=== PATIENT | male | born 1955 | race African-American/Black ===

== ENCOUNTER 2022-02-01 12:53 | Outpatient (CLI) | payer MEDICARE, SELFPAY ==
--- NOTE | ~2022-02-01 | CT_ITS ---
EXAMINATION: CT LE RT wo con DATE: 02/01/2022 13:36 INDICATION: Right hip osteoarthritis for preoperative evaluation. TECHNIQUE: High resolution computed tomography (CT) of the right lower extremity from the hip through the ankle was performed without intravenous contrast. Additional sagittal and coronal reconstruction s were performed. Automated exposure control and iterative reconstruction technique were employed. e dose-length product was 1883.85 mGy-cm. COMPARISON: Right knee radiographs dated 10/11/2019 FINDINGS: Alignment is normal. No fracture. Tricompartmental osteoarthritis at the right knee, severe with dege nerative subchondral changes consistent with overlying high-grade chondral malacia at the medial and patellofemoral compartments. Small knee joint effusion. Minimal osteoarthritis at the right hip and a nkle without joint effusions. Elongated eccentric sclerotic lesion along the medial side of the mid t o distal right femoral diaphysis with no endosteal scalloping or other aggressive features most likel y either a bone island or remnant of a chronic involuted nonossifying fibroma. Soft tissues are unrem arkable. IMPRESSION: 1. Right knee severe tricompartmental osteoarthritis with medial and patellofemoral predominance. Reviewed, dictated and finalized at location B. IMPRESSION: 1. Right knee severe tricompartmental osteoarthritis with medial and patellofem oral predominance.
[2022-02-01 13:46] LABS: Hematocrit 43.4 % (42.0-52.0); Hemoglobin 14.3 g/dL (14.0-18.0)
[2022-02-01 14:03] LABS: Albumin Level 4.2 g/dL (3.5-5.1); Estimated Glomerular Filt Rate > 60; Glucose 115 mg/dL (65-110)
[2022-02-01 14:13] LABS: Urine Cotinine NEGATIVE
[2022-02-01 14:44] LABS: Hemoglobin A1C 6.2 % (<5.7)
== END 2022-02-01 12:54 | disposition home or self-care (01) ==
PROVIDERS: Visit Provider Orthopaedic Surgery
DX: Z01.818 Encounter for other preprocedural examination (principal); M17.11 Unilateral primary osteoarthritis, right knee
CPT/HCPCS: 73700; 80307; 82040; 82565; 82947; 83036; 85014; 85018

== ENCOUNTER 2022-02-07 15:20 | Outpatient (CLI) | payer MEDICARE, SELFPAY ==
--- NOTE | 2022-02-07 15:31 | ECG_ITS ---
Measurements Intervals [place] Rate: 55 P: 52 NM: 180 QRS: -17 QRSD: 138 T: 8 QT: 473 QTc: 454 Interpretive Statements SINUS BRADYCARDIA RIGHT BUNDLE BRANCH BLOCK BASELINE ARTIFACT- I, II, AVR, AVL, V1 ABNORMAL ECG NO PREVIOUS ECG AVAILABLE FOR COMPARISON Electronically Signed On 02-07-2022 16:46:22 TIRE FIXER by Eric Pedroza D.O.
== END 2022-02-07 15:21 | disposition home or self-care (01) ==
LOC: ANHCARD 15:23
PROVIDERS: Visit Provider Orthopaedic Surgery
DX: M17.11 Unilateral primary osteoarthritis, right knee (principal); R00.1 Bradycardia, unspecified; I45.10 Unspecified right bundle-branch block
CPT/HCPCS: 93005

== ENCOUNTER 2022-03-27 09:57 | Outpatient (CLI) | payer MEDICARE, SELFPAY ==
[2022-03-27 11:13] LABS: Basophils Percent Auto 0.2 % (0.2-1.2); Eosinophils Absolute Auto 0.4 K/mm3 (0-0.3); Eosinophils Percent Auto 3.9 % (0-4.4); Hematocrit 44.6 % (42.0-52.0); Hemoglobin 14.6 g/dL (14.0-18.0); Immature Granulocyte Absolute 0.03 K/mm3 (0.00-0.031); Immature Granulocyte Percent A 0.3 % (0-0.5); Lymphocytes Absolute Auto 2.01 K/mm3 (0.9-3.2); Lymphocytes Percent Auto 20.6 % (18.3-44.2); Mean Corpuscular HGB Conc 32.7 g/dl (32-36); Mean Corpuscular Hemoglobin 30.5 pg (26-34); Mean Corpuscular Volume 93.1 fl (80-100); Monocytes Absolute Auto 0.7 K/mm3 (0.1-0.6); Neutrophils Absolute Auto 6.7 K/mm3 (1.3-6.7); Platelet Count Result 259 k/mm3 (150-375); Red Blood Count 4.79 M/mm3 (4.6-6.20); Red Cell Distribution Width 13.2 % (11.5-14.5); White Blood Count 9.8 K/mm3 (4.5-10.0)
[2022-03-27 11:25] LABS: Estimated Glomerular Filt Rate > 60; Glucose 135 mg/dL (65-110)
[2022-03-27 11:32] LABS: Urine Cotinine NEGATIVE
== END 2022-03-27 09:58 | disposition home or self-care (01) ==
PROVIDERS: Visit Provider Orthopaedic Surgery
DX: Z01.818 Encounter for other preprocedural examination (principal); M17.11 Unilateral primary osteoarthritis, right knee
CPT/HCPCS: 80307; 82040; 82565; 82947; 85025; 87081

== ENCOUNTER 2022-04-16 00:22 | Day surgery (SDC) | payer MEDICARE, SELFPAY ==
[2022-03-27 10:06] VITALS: BMI 35.2
--- NOTE | 2022-03-27 10:38 | PC.NURSE ---
Report to the Outpatient Waiting Room, entrance under the green pavilion located off [facility], at time _1130 on date ___04/16/22____. Planned Procedure Time: _1330 . Time changes happen often and if your time is changed the preop area will call you the afternoon before. - You and your visitor will be asked to self-screen and do not enter if you have any COVID symptoms. - Only one visitor is requested with a max of two and NO children visitors are allowed at this time. - The patient visitor may be requested to leave or wait in car when not with patient due to distancing restrictions. - A mask is optional within the hospital. Patients may have clear liquids (water, carbonated beverages, clear teas, apple juice) until 3 hours prior to surgery with a maximum of 20 ounces. - No food from midnight until time of surgery - Infants may have breast milk until 4 hours before surgery, infant formula 6 hours prior to surgery. - Children will be allowed to drink immediately following surgery. If applicable, please bring a bottle or sippy cup to assist with drinking. Juice, water, soda, and popsicles are readily available. For infants on formula, please bring formula the day of surgery. Pacifiers are allowed. Take the following medications with a SIP of water the morning of surgery: NONE Medications to discontinue per physician ALL VITAMINS AND SUPPLEMENTS 3 DAYS PRE OP PER ANESTHESIA LAST DOSE04/12/22 Date to take last dose Please no make-up, nail palauan, hairspray, perfume, deodorant, or body powder the day of surgery. No jewelry (including any body piercings) or valuables the day of surgery, leave them at home. Please take a shower or bath the night before, or the morning of, surgery with an antibacterial soap. Wear comfortable, loose fitting clothing. Children are encouraged to wear pajamas. - Jewelry must be removed prior to entering the operating room. Rings and piercings that are not removed may be cut off. - The hospital will not accept responsibility for valuables. - Please leave all valuables, including medications, at home the day of surgery. TOTAL JOINT CLASS 04/03/22 AT 10 AM If you are going home after surgery, a licensed tow car driver must drive you home. - NO public transportation without another adult if you receive anesthesia. - We recommend that an adult stay with you for 24 hours following discharge. - We also recommend that you do not drive, make important decision, drink alcoholic beverages, or take any drugs that were not prescribed by your health care provider for at least 24 hours after your discharge time. Follow any additional instructions given to you from your surgeon. If you or anyone in your household have experienced Covid symptoms in the past week, please notify your surgeon or the nurse liaison at the phone number below for possible testing. VERBAL AND WRITTEN instructions given to __PATIENT and asked if any additional questions and then verbalized understanding. Patient advised to call surgeon office or pre surgery nurse liaison [phone] if any additional questions.
[2022-03-27 10:52] VITALS: BP 148/83; PULSE 58; RESP 18; TEMP 37.2; O2SAT 98
[2022-04-16] VITALS (14 sets, daily range): BP systolic 123–154; BP diastolic 67–102; PULSE 53–69; RESP 12–20; TEMP 36.1–36.9; O2SAT 92–100; BMI 34.1
--- NOTE | ~2022-04-16 | XR_ITS ---
EXAMINATION: XR knee RT 2V DATE: 04/16/2022 15:37 INDICATION: Right knee arthroplasty. Postop. TECHNIQUE: 2 views of right knee were obtained. COMPARISON: Right knee radiographs 10/11/2019 FINDINGS: There is a total right knee arthroplasty with patellar resurfacing in near-anatomic alignme nt. No fracture. There is gas in the knee joint and soft tissues, consistent with recent surgery. IMPRESSION: 1. Total right knee arthroplasty in near-anatomic alignment. Reviewed, dictated and finalized at location A. FILL GAS PLANT FIELD TECHNICIAN
--- NOTE | 2022-04-16 09:36 | WPDHPUPDATE1 ---
History and Physical Update Update Date/Time: 04/16/22 09:36 History and Physical has been reviewed, including an updated exam of the patient. There are NO changes in the patient's condition. Risks, benefits, and alternatives have been discussed and questions answered. Patient agrees to proceed with procedure.
--- NOTE | 2022-04-16 10:08 | P.PNAN_ITS ---
Anes - Initial Pre Proc Eval Procedure: Operation Date: 04/16/22 13:30 Proposed Procedures p Right Custom Total Knee Arthroplasty - Adrien Torres MD Date/Time: 04/16/22 10:08 Surgeon: Adrien Torres MD Pre Op Diagnosis: Prim O A Rt knee Patient Data Age: 67 Gender: M Height: 1.91 m Weight: 127.7 kg Last Vital Signs Temp 37.2 C 03/27/22 10:52 Pulse 58 L 03/27/22 10:52 Resp 18 03/27/22 10:52 BP 148/83 H 03/27/22 10:52 Pulse Ox 98 03/27/22 10:52 O2 Del Method Room Air 03/27/22 10:52 Allergies Allergy/AdvReac Type Severity Reaction Status Date / Time terfenadine [From Seldane] Allergy Unknown Nausea Verified 04/16/22 11:39 Home Medications Medication Instructions Recorded Confirmed Type multivitamin (Multiple Vitamins 1 tablet PO DAILY 01/30/22 04/16/22 History tablet) arginine oxoglurate 350 mg 350 mg PO DAILY 03/27/22 04/16/22 History tablet,extended release (L-Arginine (alpha-ketoglutarate)) lactobacillus combination no.4 3 3,000 mmu cells PO DAILY 03/27/22 04/16/22 History billion cell capsule (Probiotic) ofloxacin 0.3 % ear drops 3 drp EACH EAR PRN PRN EAR 03/27/22 04/16/22 History INFECTIONS tacrolimus 0.1 % topical ointment 1 applic topical DAILY 03/27/22 03/27/22 History Patient hx anesthesia problems: none Family hx anesthesia problems: none Results Review: All pre-operative results and documents have been reviewed as part of the pre- operative evaluation. [facility] Past Medical History Medical History (Updated 01/30/22 @ 10:59 by Kimberly García MA) History of cleft palate (~1964) Social History Social History (Updated 01/30/22 @ 10:56 by Kimberly García MA) Smoking status: Never smoker Additional smoking assessment comments: DENIES ANY FORM OF TOBACCO USE Alcohol intake: current Alcohol use details: 2 DRINKS PER MONTH Lack of Transportation: No Lack of Food: Never True Current Housing: I Have Housing Concerned About Future Housing: No Difficulty Paying Gas/Electric Bills: No Difficulty Paying for Meds: No Currently Unemployed: No Education: Master's Degree or Higher Difficulty w/ Childcare or Family Care: No Living arrangements: alone Spiritual care concerns: No Anes - Eval Final PreProcedure Day of Procedure 04/16/22 10:08 Patient weight: obese Heart: regular rate and rhythm Lungs: clear to auscultation Airway: Mallampati scale class II Neurological: alert and oriented Last oral intake: >/= 8 hours ASA classification: II Emergent: no Anesthetic plan: proceed Anesthesia type and monitoring: general LMA and standard monitoring Results Review: All pre-operative results and documents have been reviewed as part of the pre- operative evaluation. Informed Consent: The patient's anesthetic plan and its attendant risks and benefits were discussed with the patient/family/POA. Questions were solicited and answers provided to the satisfaction of the patient/family/POA.
[2022-04-16] MEDS: ACETAMINOPHEN 500 MG TABLET 1000 MG PO (11:49)
--- NOTE | 2022-04-16 11:59 | WPDANESPNB ---
Anes - Peripheral Nerve Block Date/Time: 04/16/22 11:59 I have discussed with the patient/family/POA the placement of a peripheral nerve block for post-operative pain management, including associated risks, benefits, complications, and side effects. Alternative methods of post-operative analgesia were detailed. Questions were solicited and answers provided to the satisfaction of the patient/family/POA. Time-Out: A pre-procedural Time-Out was completed immediately before starting the procedure and confirmed: Patient Identification, Site, Procedure, Patient Position and the Availability of Requisite Equipment. Clinical Indications: Acute post-operative pain management requested by the operative surgeon. Nerve Block Insertion Note Anes-nerve block: adductor canal right Patient position: supine Skin prep: chlorhexidine Needle: 22 gauge, stimulating, insulated echogenic needle. Needle length: 80 mm Technique: ultrasound Injectate: bupivacaine 0.5% with epi 5 mcg/ml (30cc - no epi) Observations: tolerated well Complications: none Procedure start time:: 1229 Procedure end time:: 1232
[2022-04-16] MEDS: LACTATED RINGERS 1,000 ML 30 ML IV CONT ×2 (12:00→15:10)
[2022-04-16] MEDS: TRANEXAMIC ACID 1,000MG/ISO100 1,000 MG/100 ML BAG 200 MG IVPB (12:12)
[2022-04-16] MEDS: ceFAZolin 3 GM/D5W 100 ML 100 ML IVPB (12:51)
[2022-04-16] MEDS: fentaNYL CITRATE INJ (*CRX) 100 MCG/2 ML VIAL 25 MCG IV PUSH ×4 (15:21→16:08)
[2022-04-16] MEDS: diphenhydrAMINE HCl INJ 50 MG/ML VIAL 25 MG IV PUSH (15:27)
--- NOTE | 2022-04-16 15:59 | P.OP_ITS ---
Procedure Note - Detailed Date of Procedure 04/16/22 Pre-op Diagnosis Prim O A Rt knee Post-op Diagnosis Same Procedure Performed Total knee arthroplasty, right knee. Surgeon Adrien Torres MD Sharples Machine Operator Ashley Waterman PA-C Anesthesia General and Regional (Subsartorial block.) Findings Excellent bone quality. No significant medial release required. Severe patellar erosion with patella lyn. Description of Procedure Preoperative antibiotics were given. The limb was prepped and draped in the usual sterile fashion with a well-padded tourniquet high on the thigh. The limb was exsanguinated and the tourniquet inflated to 300 mmHg. A longitudinal incision was created just medial to the patella. A trivector approach to the knee was performed. Arthrotomy was taken down through the joint capsule. No significant releases were initially taken. The femur was exposed and the F1 jig was applied. The coring tool was used to remove the cartilage for the F2 jig to sit flush with the bone. The jig was pinned and the distal cut carefully taken. Caliper measurements confirmed appropriate bony resections according to the preoperative templated plan. The F4 cutting jig for the femur was applied, at the standard rotation. The AP and anterior chamfer cuts were taken. The F5 jig was applied and the posterior chamfer cuts were taken. The box cut was taken. The tibia was prepared using the T1 jig, after removing cartilage for the jig contact points. Proper alignment was checked with the alignment stepan. The tibia was cut using the T1u guide. Gap balancing was performed. Gap measurements were taken and the knee was trialed. Excellent alignment and soft tissue balancing was confirmed. The posterior cruciate ligament was recessed along the proximal tibia. The patella was cut for resurfacing. Three lug holes were drilled. Meniscal remnants were removed. The trial components were assembled. Excellent range of motion and proper soft tissue balancing were confirmed throughout the full range of motion. Patellar tracking was excellent. The knee was copiously irrigated periodically throughout the procedure. The real implants were cemented into position. Excess cement was carefully removed. The wound was closed in layers with interrupted #1 Vicryl suture, 2-0 strata fix suture, 0 strata fix suture, 2-0 strata fix suture. Steri-Strips placed on the skin with the knee flexed. Sterile bulky dressing applied. The patient was brought to the recovery room in stable condition. There were no complications. Physician occupational therapist's assistant, Ashley Waterman PA-C, required for surgery; including patient positioning, draping, tissue retraction, maintaining instrument position, wound closure, and dressing placement. Implants Conformis imprint semi custom total knee arthroplasty. Cemented. posterior stabilized 8mm insert. 38 mm round patella. Estimated Blood Loss -50.0 Drains No Complications No immediate complications Condition Stable Disposition PACU [facility] Billing Surgery - Charge Forward: Surgery Billing
--- NOTE | 2022-04-16 16:45 | PC.NURSE ---
This patient, Hugo Veras, was admitted to [facility] (Formerly [facility]3] Surgery-11. Patient/family oriented to hospital policies and general routines including ID bracelet, bed and alarms, visiting hours, pain management, procedures, bathroom and other care routines, personal items, smoking policy, room service/diet, and visiting hours. Information on how to activate the Rapid Response Team has been discussed. Patient/Family are encouraged to report perceived risks to care and to ask questions if they do not understand what they are told or what they should do.
[2022-04-16] MEDS: oxyCODONE HCL (*CRX) 5 MG TAB IR PO (17:01)
[2022-04-16] MEDS: MELOXICAM 7.5 MG TABLET PO (17:01)
[2022-04-16] MEDS: SENNA/DOCUSATE SODIUM TABLET 2 TAB PO (17:01)
[2022-04-16] MEDS: ASPIRIN 81 MG ENTERIC TABLET PO (17:02)
[2022-04-16] MEDS: SODIUM CHLORIDE 0.9% IV 1,000 ML 125 ML IV CONT (17:02)
--- NOTE | 2022-04-16 20:09 | PHAR ---
PT'S HOME MED OFLOXACIN0.3% OTIC SOLN VERIFIED BY PHARMACY
[2022-04-16] MEDS: FAMOTIDINE 20 MG TABLET PO (20:33)
[2022-04-16] MEDS: ceFAZolin 2 GM/D5W 50 ML 2 GM/50 ML BAG IVPB (20:33)
[2022-04-17] MEDS: oxyCODONE HCL (*CRX) 5 MG TAB IR PO ×3 (00:25→09:02)
[2022-04-17] MEDS: ceFAZolin 2 GM/D5W 50 ML 2 GM/50 ML BAG IVPB ×2 (04:46→12:25)
[2022-04-17 04:59] VITALS: BP 136/67; PULSE 56; RESP 18; TEMP 36.4; O2SAT 98
[2022-04-17 05:35] LABS: Basophils Percent Auto 0.1 % (0.2-1.2); Eosinophils Percent Auto 0.1 % (0-4.4); Hematocrit 36.7 % (42.0-52.0); Hemoglobin 12.5 g/dL (14.0-18.0); Immature Granulocyte Absolute 0.08 K/mm3 (0.00-0.031); Immature Granulocyte Percent A 0.5 % (0-0.5); Lymphocytes Absolute Auto 1.26 K/mm3 (0.9-3.2); Lymphocytes Percent Auto 8.3 % (18.3-44.2); Mean Corpuscular HGB Conc 34.1 g/dl (32-36); Mean Corpuscular Hemoglobin 31.6 pg (26-34); Mean Corpuscular Volume 92.9 fl (80-100); Mean Platelet Volume 11.3 fl (7.4-10.4); Monocytes Absolute Auto 1.2 K/mm3 (0.1-0.6); Monocytes Percent Auto 7.6 % (2.6-8.5); Neutrophils Absolute Auto 12.7 K/mm3 (1.3-6.7); Neutrophils Percent Auto 83.4 % (45.5-73.1); Platelet Count Result 213 k/mm3 (150-375); Red Blood Count 3.95 M/mm3 (4.6-6.20); Red Cell Distribution Width 13.2 % (11.5-14.5); White Blood Count 15.3 K/mm3 (4.5-10.0)
[2022-04-17 05:41] LABS: Anion Gap 5 mmol/L (8-16); Blood Urea Nitrogen 20 mg/dL (9-20); Carbon Dioxide 23 mmol/L (22-30); Chloride 103 mmol/L (98-107); Estimated CRCL calculation 98 ml/min; Estimated Glomerular Filt Rate > 60; Glucose 144 mg/dL (65-110); Potassium 4.1 mmol/L (3.4-5.0); Sodium 131 mmol/L (137-145)
[2022-04-17] MEDS: CYCLOBENZAPRINE HCL 10 MG TABLET PO (06:32)
--- NOTE | 2022-04-17 08:09 | WPDANESPN ---
Anes - Prog Note Post-Op Date/Time: 04/17/22 08:09 Cardiovascular status: normal Respiratory status: normal Airway patency: baseline Mental status: baseline Post-Op hydration status: normal Vital Signs: Last Vital Signs Temp 36.4 C L 04/17/22 04:59 Pulse 56 L 04/17/22 04:59 Resp 18 04/17/22 04:59 BP 136/67 04/17/22 04:59 Pulse Ox 98 04/17/22 04:59 O2 Del Method Room Air 04/16/22 16:25 O2 Flow Rate 6 04/16/22 15:25 Pain Score (VAS): 3 I/O: Intake & Output 04/16/22 04/17/22 04/17/22 23:59 07:59 15:59 Intake Total 1455 250 Output Total 1 Balance 1454 250 Laboratory Tests 04/17/22 05:20 04/17/22 05:20 04/16/22 04/17/22 04/17/22 11:50 05:20 05:20 WBC 15.3 H RBC 3.95 L Hgb 12.5 L Hct 36.7 L MCV 92.9 MCH 31.6 MCHC 34.1 RDW 13.2 Plt Count 213 MPV 11.3 H Immature Gran % (Auto) 0.5 Neut % (Auto) 83.4 H Lymph % (Auto) 8.3 L [place] % (Auto) 7.6 Eos % (Auto) 0.1 Baso % (Auto) 0.1 L Lymph # (Auto) 1.26 [place] # (Auto) 1.2 H Eos # (Auto) 0.0 Baso # (Auto) 0.0 Abs Immat Gran (auto) 0.08 H Absolute Neuts (auto) 12.7 H Absolute Nucleated RBC 0.0 Nucleated RBC % 0.0 Sodium 131 L Potassium 4.1 Chloride 103 Carbon Dioxide 23 Anion Gap 5 L BUN 20 Creatinine 0.90 Estim Creat Clear Calc 98 Estimated GFR > 60 Glucose 144 H Calcium 8.0 L Blood Type A Positive Antibody Screen Negative Post-procedural complaints: none Patient Feedback: Patient satisfied with anesthetic care.
--- NOTE | 2022-04-17 08:15 | PM.DS ---
DS: Admitting Diagnosis Discharge Date 04/17/22 Admitting Diagnosis OA knee Right DS: Discharge Diagnosis Discharge Diagnosis (1) Status post total right knee replacement: Code(s): Z96.651 - Presence of right artificial knee joint Status: Acute Assessment and Plan: Postop day 1: Right total knee arthroplasty. Patient tolerated procedure well. No complications. Pain manageable with pain medication. No numbness or tingling. We had a lengthy discussion regarding postoperative wound care, limitations, expectations, and exercises. Patient shows good understanding. He has had initial physical therapy and is tolerating it well. DVT prophylaxis: 81 mg baby aspirin b.i.d. for 14 days. Pain medication: Percocet. Prednisone. Meloxicam. Patient has followup appointment with Dr. Torres in 3 weeks. DS: Summary Hospital Course Reason for hospitalization: Total knee arthroplasty Hospital Course: Patient tolerated procedure well. Has had initial PT/OT. No complications. Pain well managed. Status at Discharge Functional status at discharge: uses cane/walker Overall status at discharge: patient is progressing back to baseline Time Spent with Patient Time attestation: Total time spent providing and/or coordinating discharge services: Exam Narrative: Overweight 67 y/o Male. Resting comfortably in chair. No acute distress. A&O x3. Wearing compression socks bilaterally. Dressing intact with no drainage. Moderate swelling. Small area of ecchymosis. No erythema. No hematoma. Good early range of motion. Calf nontender. Neurologic status intact. No varicosities. Distal pulses palpable. DS: Data Data Completed and Pending Labs on day of discharge: Labs from last 24 hours 04/17/22 04/17/22 04/16/22 05:20 05:20 11:50 WBC 15.3 H RBC 3.95 L Hgb 12.5 L Hct 36.7 L MCV 92.9 MCH 31.6 MCHC 34.1 RDW 13.2 Plt Count 213 MPV 11.3 H Immature Gran % (Auto) 0.5 Neut % (Auto) 83.4 H Lymph % (Auto) 8.3 L [place] % (Auto) 7.6 Eos % (Auto) 0.1 Baso % (Auto) 0.1 L Lymph # (Auto) 1.26 [place] # (Auto) 1.2 H Eos # (Auto) 0.0 Baso # (Auto) 0.0 Abs Immat Gran (auto) 0.08 H Absolute Neuts (auto) 12.7 H Absolute Nucleated RBC 0.0 Nucleated RBC % 0.0 Sodium 131 L Potassium 4.1 Chloride 103 Carbon Dioxide 23 Anion Gap 5 L BUN 20 Creatinine 0.90 Estim Creat Clear Calc 98 Estimated GFR > 60 Glucose 144 H Calcium 8.0 L Blood Type A Positive Antibody Screen Negative Discharge Plan Discharge Patient Disposition: Home, Self-Care Discharge Instructions: See green instruction sheets Stand Alone Forms: General Discharge Instructions Follow-up/Referrals: Ashley Waterman PA [Physician Underwriting Technician] - Discharge Medications: New meloxicam 15 mg tablet 15 mg PO DAILY Qty: 30 0RF Rx Instructions: Cut in half. Take 1/2 in morning and 1/2 at night. Take with food. Stop if stomach upset. prednisone 5 mg tablet 5 mg PO DAILY 21 Days Qty: 21 0RF aspirin 81 mg tablet,delayed release (DR/EC) 81 mg PO BID 14 Days Qty: 28 0RF oxycodone-acetaminophen 5-325 mg tablet 1 - 2 tablet PO Q4-6H MDD 6 PRN (Reason: pain) Qty: 30 0RF Continued multivitamin [Multiple Vitamins] Tablet 1 tablet PO DAILY L-Arginine(alpha-ketoglutarat) 350 mg Tablet Extended Release 350 mg PO DAILY Probiotic 3 billion cell Capsule 3,000 mmu cells PO DAILY Rx Instructions: administer with a meal ofloxacin 0.3 % drops 3 drp EACH EAR PRN PRN (Reason: EAR INFECTIONS) tacrolimus 0.1 % Ointment 1 applic TOPICAL DAILY
[2022-04-17] MEDS: MELOXICAM 7.5 MG TABLET PO (08:25)
[2022-04-17] MEDS: predniSONE 5 MG TABLET PO (08:25)
[2022-04-17] MEDS: FAMOTIDINE 20 MG TABLET PO (08:25)
[2022-04-17] MEDS: polyethylene glycoL 3350 17 GM POWD.PACK PO (08:25)
[2022-04-17] MEDS: SENNA/DOCUSATE SODIUM TABLET 2 TAB PO (08:25)
[2022-04-17] MEDS: ASPIRIN 81 MG ENTERIC TABLET PO (08:25)
[2022-04-17] MEDS: traMADol HCL (*CRX) 50 MG TABLET PO (10:10)
[2022-04-17] MEDS: oxyCODONE HCL (*CRX) 5 MG TAB IR 10 MG PO (12:30)
== END 2022-04-17 13:17 | disposition home or self-care (01) ==
LOC: ANHSURGERY 14:26 → ANHSUROVER 16:31
PROVIDERS: Physician Assistant Surgical; Visit Provider Orthopaedic Surgery
PROC: (CPT 27447; principal; 2022-04-16 13:30)
DX: M17.11 Unilateral primary osteoarthritis, right knee (principal); G89.18 Other acute postprocedural pain; E66.9 Obesity, unspecified; Z68.34 Body mass index [BMI] 34.0-34.9, adult
CPT/HCPCS: 27447; 64447; 36415; 73560; 80048; 80307; 82040; 82565; 82947; 85025; 86850; 86900; 86901; 87081; 97110; 97161; 97165; 97535; A9270; C1713; C1776; J0131; J0171; J0690; J1100; J1170; J1200; J1885; J2250; J2270; J2405; J2704; J2795; J3010; J7030; J7120; J7512

== ENCOUNTER 2022-08-06 13:56 | Outpatient (CLI) | payer MEDICARE, SELFPAY ==
[2022-08-06 14:14] LABS: Basophils Absolute Auto 0.02 K/mm3 (0.00-0.10); Basophils Percent Auto 0.3 % (0.0-1.0); Eosinophils Absolute Auto 0.29 K/mm3 (0.02-0.50); Eosinophils Percent Auto 4.6 % (1.0-6.0); Hemoglobin 13.9 g/dL (12.4-15.3); Immature Granulocyte Absolute 0.02 K/mm3 (0.00-0.00); Immature Granulocyte Percent A 0.3 % (0.0-0.0); Lymphocytes Absolute Auto 2.01 K/mm3 (1.10-4.50); Mean Corpuscular HGB Conc 33.1 g/dL (32.0-36.0); Mean Corpuscular Hemoglobin 30.2 pg (27.0-31.0); Mean Corpuscular Volume 91.1 fL (78.0-102.0); Mean Platelet Volume 10.8 fl (8.7-11.0); Monocytes Absolute Auto 0.55 K/mm3 (0.10-0.90); Monocytes Percent Auto 8.7 % (2.0-11.0); Neutrophils Absolute Auto 3.4 K/mm3 (1.7-7.2); Neutrophils Percent Auto 54.1 % (50.0-70.0); Platelet Count Result 235 K/mm3 (150-420); Red Blood Count 4.61 M/mm3 (4.70-6.10); Red Cell Distribution Width 12.9 % (11.6-14.4); White Blood Count 6.3 K/mm3 (4.8-10.8)
== END 2022-08-06 13:57 | disposition home or self-care (01) ==
DX: D64.9 Anemia, unspecified (principal)
CPT/HCPCS: 36415; 85025

== ENCOUNTER 2022-09-12 16:13 | Emergency (ER) | payer MEDICARE, SELFPAY ==
--- NOTE | 2022-09-12 16:16 | ED.GENADULT ---
HPI - General Adult General Chief complaint: Nausea/Vomiting/Diarrhea Stated complaint: Diarrhea/Vomiting Time Seen by Provider: 09/12/22 16:27 Source: patient, RN notes reviewed and old records reviewed Mode of arrival: ambulatory Limitations: no limitations History of Present Illness HPI narrative: 67-year-old male presents to the [facility] with complaints of diarrhea for 5 days, vomiting since yesterday. Denies chest pain. denies any abdominal pain. Patient denies any medical history. Has taken Imodium, Pepto periods Onset (ago): day(s) (6) Related Data Allergies Allergy/AdvReac Type Severity Reaction Status Date / Time terfenadine [From Seldane] Allergy Unknown Nausea Verified 07/17/22 14:10 Review of Systems Review of Systems: All systems reviewed & are unremarkable except as noted in HPI and below Constitutional: Constitutional: Reports no additional constitutional complaints Eyes: Eyes: Reports no additional eye complaints ENT: Reports system reviewed and no additional complaints, except as documented Cardiovascular: Cardiovascular: Reports no additional cardiovascular complaints, Denies chest pain and Denies dyspnea Respiratory: Respiratory: Reports no additional respiratory complaints, Denies chest congestion, Denies cough and Denies dyspnea Gastrointestinal: Gastrointestinal: Reports as per HPI, Denies abdominal pain, Reports diarrhea, Reports nausea and Reports vomiting Musculoskeletal: Musculoskeletal: Reports no additional musculoskeletal complaints Integumentary/Breasts: Skin/Breast: Reports system reviewed and no additional complaints, except as docu Neurologic: Reports system reviewed and no additional complaints, except as documented Psychiatric: Psychiatric: Reports no additional psychiatric complaints Allergic/Immunologic: Allergic/Immunologic: Reports no additional allergic/immunologic complaints [facility] Past Medical History Medical History History of cleft palate (~1964) Surgical History Surgical History Status post total right knee replacement (~04/16/22) Social History Social History Smoking status: Never smoker Additional smoking assessment comments: DENIES ANY FORM OF TOBACCO USE Alcohol intake: current Alcohol use details: 2 DRINKS PER MONTH Substance use: never Substance use type: does not use Other substance usage details: rare alcohol use Lack of Transportation: No Lack of Food: Never True Current Housing: I Have Housing Concerned About Future Housing: No Difficulty Paying Gas/Electric Bills: No Difficulty Paying for Meds: No Currently Unemployed: No Education: Associate Degree Difficulty w/ Childcare or Family Care: No Living arrangements: alone Spiritual care concerns: No Comments At the time of my signature, I reviewed and agree with the nursing past medical, surgical, social, and family history. There is no relevant family history pertinent to the patient complaint. Exam Const: General: cooperative, healthy appearing, comfortable, no acute distress, well developed, alert, well groomed and well nourished Nutritional Appearance: well nourished and underweight Orientation/consciousness: patient oriented x3 Limitations: no limitations HENMT: Head: normal to inspection Ears: hearing grossly normal bilaterally and external ears normal Face/Nose/Sinus: Normal external nose present, Normal nares present, Normal nasal mucous membranes and turbinates present and normal facial exam Face and sinus: normal facial exam Mouth: Yes Normal oral and palatal mucosa present, Yes lip normal and Yes moist mucous membranes Throat: posterior oropharynx normal and uvula midline Eyes: General: appearance normal, both eyes and all related structures Alignment and Position: alignment prosper
[2022-09-12 16:24] VITALS: BP 109/58; PULSE 56; RESP 16; TEMP 36.9; O2SAT 98
== END 2022-09-12 16:43 | disposition home or self-care (01) ==
PROVIDERS: Emergency Provider Nurse Practitioner
DX: R19.7 Diarrhea, unspecified (principal); Z96.651 Presence of right artificial knee joint
CPT/HCPCS: 99211; G0463

== ENCOUNTER 2023-02-13 08:55 | Outpatient (CLI) | payer MEDICARE, SELFPAY ==
--- NOTE | ~2023-02-13 | CT_ITS ---
CT of the Abdomen and Pelvis: Indication: Abdominal pain Technique: 2.5 mm axial scans were obtained through the abdomen and pelvis following intravenous adm inistration of 100 cc of Omnipaque 350. Dose reduction technique was used on this scan by utilizing a utomated exposure control and iterative reconstruction technique. The dose-length product (DLP) was 1 401.04 mGy-cm. Findings: Scans through the lung bases demonstrate 3 mm left lower lobe pulmonary nodule. The liver, spleen, pancreas, gallbladder, adrenals and kidneys are within normal limits. No evidence of aortic aneurysm. No lymphadenopathy. No bowel obstruction or bowel wall thickening. There is no evidence to suggest acute appendicitis. Images through the pelvis were performed. Urinary bladder unremarkable. Prostate gland is mildly enla rged. No ascites. Impression: Enlarged prostate gland. 3 mm left lower lobe pulmonary nodule. According to Fleischner Society criteria, for a low-risk patie nt, no further follow-up required. For a high-risk patient, consider 12 month follow-up CT. Reviewed, dictated and finalized at location . SHAKER Impression: Enlarged prostate gland. 3 mm left lower lobe pulmonary nodule. According to Fleischner Society criteria , for a low-risk patient, no further follow-up required. For a high-risk patien t, consider 12 month follow-up CT.
[2023-02-13 09:15] LABS: Estimated Glomerular Filt Rate > 60
[2023-02-13 09:37] LABS: Hematocrit 41.6 % (42.0-52.0); Hemoglobin 13.4 g/dL (14.0-18.0)
[2023-02-13 09:48] LABS: Urine Cotinine NEGATIVE
[2023-02-13 09:50] LABS: Albumin Level 3.6 g/dL (3.5-5.1); Estimated Glomerular Filt Rate > 60; Glucose 101 mg/dL (65-110)
[2023-02-13 09:51] LABS: Hemoglobin A1C 5.8 % (<5.7)
== END 2023-02-13 08:56 | disposition home or self-care (01) ==
PROVIDERS: Orthopaedic Surgery
DX: Z01.818 Encounter for other preprocedural examination (principal); R10.9 Unspecified abdominal pain; R91.1 Solitary pulmonary nodule; M17.12 Unilateral primary osteoarthritis, left knee
CPT/HCPCS: 74177; 80307; 82040; 82565; 82947; 83036; 85014; 85018; Q9967

== ENCOUNTER 2023-04-09 13:40 | Outpatient (CLI) | payer MEDICARE, SELFPAY ==
--- NOTE | 2023-04-09 14:32 | ECG_ITS ---
Measurements Intervals [place] Rate: 52 P: 45 [place]: 193 QRS: -24 QRSD: 136 T: 4 QT: 486 QTc: 456 Interpretive Statements SINUS BRADYCARDIA ATRIAL PREMATURE COMPLEX RIGHT BUNDLE BRANCH BLOCK BASELINE ARTIFACT- II, III, AVF ABNORMAL ECG COMPARED TO ECG 02/07/2022 15:41:08 NO SIGNIFICANT CHANGES Electronically Signed On 04-09-2023 16:09:56 DIST[employer]BUTION SYSTEMS SERVICEPERSON by Eric Pedroza D.O.
[2023-04-09 15:08] LABS: Basophils Percent Auto 0.3 % (0.2-1.2); Eosinophils Absolute Auto 0.4 K/mm3 (0-0.3); Eosinophils Percent Auto 5.5 % (0-4.4); Hematocrit 45.9 % (42.0-52.0); Hemoglobin 14.9 g/dL (14.0-18.0); Immature Granulocyte Absolute 0.03 K/mm3 (0.00-0.031); Immature Granulocyte Percent A 0.4 % (0-0.5); Lymphocytes Absolute Auto 2.06 K/mm3 (0.9-3.2); Mean Corpuscular HGB Conc 32.5 g/dl (32-36); Mean Corpuscular Hemoglobin 30.5 pg (26-34); Mean Corpuscular Volume 93.9 fl (80-100); Monocytes Absolute Auto 0.6 K/mm3 (0.1-0.6); Monocytes Percent Auto 8.4 % (2.6-8.5); Neutrophils Absolute Auto 4.5 K/mm3 (1.3-6.7); Neutrophils Percent Auto 58.4 % (45.5-73.1); Platelet Count Result 230 k/mm3 (150-375); Red Blood Count 4.89 M/mm3 (4.6-6.20); Red Cell Distribution Width 13.2 % (11.5-14.5); White Blood Count 7.6 K/mm3 (4.5-10.0)
[2023-04-09 15:20] LABS: Albumin Level 4.1 g/dL (3.5-5.1); Estimated Glomerular Filt Rate > 60; Glucose 122 mg/dL (65-110)
[2023-04-09 15:26] LABS: Urine Cotinine NEGATIVE
== END 2023-04-09 13:41 | disposition home or self-care (01) ==
LOC: ANHSURGERY 13:45
PROVIDERS: Visit Provider Orthopaedic Surgery
DX: Z01.818 Encounter for other preprocedural examination (principal); M17.12 Unilateral primary osteoarthritis, left knee; I45.10 Unspecified right bundle-branch block; R94.31 Abnormal electrocardiogram [ECG] [EKG]; R93.1 Abnormal findings on diagnostic imaging of heart and coronary circulation
CPT/HCPCS: 80307; 82040; 82565; 82947; 85025; 87081; 93005

== ENCOUNTER 2023-05-06 00:26 | Day surgery (SDC) | payer MEDICARE, SELFPAY ==
[2023-04-09 13:50] VITALS: BMI 33.0
--- NOTE | 2023-04-09 14:10 | PC.NURSE ---
Report to the Outpatient Waiting Room, entrance under the green pavilion located off [facility], at time _0600 on date 05/06/23 . Planned Procedure Time: _0730 . Time changes happen often and if your time is changed the preop area will call you the afternoon before. - You and your visitor will be asked to self-screen and do not enter if you have any COVID symptoms. - A mask is optional within the hospital at this time. Patients may have clear liquids (water, carbonated beverages, clear teas, apple juice) until 3 hours prior to surgery( 4:30 AM) with a maximum of 20 ounces. - No food from midnight until time of surgery - Infants may have breast milk until 4 hours before surgery, infant formula 6 hours prior to surgery. - Children will be allowed to drink immediately following surgery. If applicable, please bring a bottle or sippy cup to assist with drinking. Juice, water, soda, and popsicles are readily available. For infants on formula, please bring formula the day of surgery. Pacifiers are allowed. Take the following medications with a SIP of water the morning of surgery: ___NONE DO NOT STOP ANY OF YOUR OTHER PRESCRIPTION MEDICATIONS PRIOR TO SURGERY ?EXCEPT THE FOLLOWING Medications to discontinue per physician NONE Date to take last dose MAY TAKE TYLENOL IF NEEDED FOR PAIN Please no make-up, nail mauritanian, hairspray, perfume, deodorant, or body powder the day of surgery. No jewelry (including any body piercings) or valuables the day of surgery, leave them at home. Please take a shower or bath the night before, or the morning of, surgery with an antibacterial soap. Wear comfortable, loose fitting clothing. Children are encouraged to wear pajamas. - Jewelry must be removed prior to entering the operating room. Rings and piercings that are not removed may be cut off. - The hospital will not accept responsibility for valuables. - Please leave all valuables, including medications, at home the day of surgery. If you are going home after surgery, a licensed escort car driver must drive you home. - NO public transportation without another adult if you receive anesthesia. - We recommend that an adult stay with you for 24 hours following discharge. - We also recommend that you do not drive, make important decision, drink alcoholic beverages, or take any drugs that were not prescribed by your health care provider for at least 24 hours after your discharge ti Follow any additional instructions given to you from your surgeon. If you or anyone in your household have experienced Covid symptoms in the past week, please notify your surgeon or the nurse liaison at the phone number below for possible testing. VERBAL AND WRITTEN instructions given to _PATIENT and asked if any additional questions and then verbalized understanding. Patient advised to call surgeon office or pre surgery nurse liaison [phone] if any additional questions.
[2023-04-09 14:30] VITALS: BP 136/82; PULSE 55; RESP 18; TEMP 36.9; O2SAT 98
[2023-05-06] VITALS (14 sets, daily range): BP systolic 119–155; BP diastolic 49–89; PULSE 60–80; RESP 12–20; TEMP 36.1–36.9; O2SAT 92–100
--- NOTE | ~2023-05-06 | XR_ITS ---
EXAMINATION: [id number] DATE: 05/06/2023 09:46 INDICATION: Total left knee arthroplasty. Postop. TECHNIQUE: 2 views of left knee were obtained. COMPARISON: Left knee radiographs 01/27/2023 FINDINGS: There is a total left knee arthroplasty with patellar resurfacing. Tibia demonstrates 12 de grees posterior angulation with respect to tibial component. No fracture. There is gas in the knee kimmie int and soft tissues, consistent with recent surgery. IMPRESSION: 1. Near total left knee arthroplasty. Reviewed, dictated and finalized at location A. A ROASTER
[2023-05-06] MEDS: LACTATED RINGERS 1,000 ML 30 ML IV CONT (06:40)
[2023-05-06] MEDS: ACETAMINOPHEN 500 MG TABLET 1000 MG PO ×3 (06:40→17:57)
--- NOTE | 2023-05-06 06:42 | ECG_ITS ---
Measurements Intervals [place] Rate: 69 P: 59 [place]: 190 QRS: -34 QRSD: 141 T: 2 QT: 438 QTc: 472 Interpretive Statements SINUS RHYTHM WITH OCCASIONAL VENTRICULAR PREMATURE COMPLEXES WITH OCCASIONAL SUPRAVENTRICULAR PREMATURE COMPLEXES RIGHT BUNDLE BRANCH BLOCK [120+ ms QRS DURATION, UPRIGHT V1, 40+ ms S IN I/aVL/V4/V5/V6] COMPARED TO ECG 04/09/2023 14:52:53 SINUS RHYTHM NOW PRESENT Electronically Signed On 05-06-2023 8:49:16 BEAM RACKER by See Mcmahon M.D.
--- NOTE | 2023-05-06 07:07 | WPDANESEPPF ---
Anes - Initial Pre Proc Eval Procedure: Operation Date: 05/06/23 07:30 Proposed Procedures p Left Total Knee Arthroplasty - Adrien Torres MD Date/Time: 05/06/23 07:07 Surgeon: Adrien Torres MD Pre Op Diagnosis: primary OA left knee Patient Data Age: 68 Gender: M Height: 1.91 m Weight: 117.7 kg Last Vital Signs Temp 36.9 C 04/09/23 14:30 Pulse 55 L 04/09/23 14:30 Resp 18 04/09/23 14:30 BP 136/82 04/09/23 14:30 Pulse Ox 98 04/09/23 14:30 O2 Del Method Room Air 04/09/23 14:30 Allergies Allergy/AdvReac Type Severity Reaction Status Date / Time terfenadine [From Seldane] AdvReac Unknown Nausea Verified 05/05/23 08:00 Home Medications Medication Instructions Recorded Confirmed Type No Home Medications 11/11/22 04/09/23 History Patient hx anesthesia problems: none Family hx anesthesia problems: none Results Review: All pre-operative results and documents have been reviewed as part of the pre-operative evaluation. [facility] Past Medical History Medical History (Updated 05/06/23 @ 07:08 by Danis Cortes MD) History of cleft palate (~1964) Overweight Surgical History Surgical History Status post total right knee replacement (~04/16/22) Social History Social History Smoking status: Never smoker Additional smoking assessment comments: DENIES ANY FORM OF TOBACCO USE Alcohol intake: current Alcohol use details: 2 DRINKS PER MONTH Substance use: never Substance use type: does not use Other substance usage details: rare alcohol use Do You Feel Safe in your Home?: Yes Lack of Transportation: No Lack of Food: Never True Current Housing: I Have Housing Concerned About Future Housing: No Difficulty Paying Gas/Electric Bills: No Difficulty Paying for Meds: No Currently Unemployed: No Education: Master's Degree or Higher Difficulty w/ Childcare or Family Care: No Living arrangements: with family Spiritual care concerns: No Anes - Eval Final PreProcedure Day of Procedure 05/06/23 07:07 Patient weight: overweight Heart: regular rate and rhythm (PACs) Lungs: clear to auscultation Airway: Mallampati scale class III, special considerations poor opening and other (implants and cleft palate) Neurological: alert and oriented Last oral intake: >/= 8 hours ASA classification: II Emergent: no Anesthetic plan: proceed Anesthesia type and monitoring: general LMA and standard monitoring Results Review: All pre-operative results and documents have been reviewed as part of the pre-operative evaluation. Informed Consent: The patient's anesthetic plan and its attendant risks and benefits were discussed with the patient/family/POA. Questions were solicited and answers provided to the satisfaction of the patient/family/POA.
--- NOTE | 2023-05-06 07:08 | WPDHPUPDATE1 ---
History and Physical Update Update Date/Time: 05/06/23 07:08 History and Physical has been reviewed, including an updated exam of the patient. There are NO changes in the patient's condition. Risks, benefits, and alternatives have been discussed and questions answered. Patient agrees to proceed with procedure.
[2023-05-06] MEDS: TRANEXAMIC ACID 1,000MG/ISO100 1,000 MG/100 ML BAG 200 MG IVPB (07:10)
[2023-05-06] MEDS: ceFAZolin 2 GM/D5W 50 ML 2 GM/50 ML BAG IVPB ×2 (07:37→17:06)
--- NOTE | 2023-05-06 07:42 | P.OP_ITS ---
Procedure Note - Detailed Date of Procedure 05/06/23 Pre-op Diagnosis primary OA left knee Post-op Diagnosis Same Procedure Performed Total knee arthroplasty, left. Surgeon Adrien Torres MD [employer] H[employer] And Skins Ashley Waterman PA-C Anesthesia General and Regional (subsartorial block) Findings Satisfactory bone quality. No significant medial release. Slight PCL release. Description of Procedure The patient was brought to the operating room. A general anesthetic was administered. The leg was prepped and draped in the usual sterile fashion. The limb was elevated and the tourniquet inflated to 300 mmHg. A longitudinal incision was created along the medial border of the patella and patellar tendon, and a trivector approach to the knee was performed. A mild medial release was taken. The knee was then flexed. The osteophytes were carefully removed. The intramedullary guide was placed in the femoral canal. The distal femoral resection was then taken with the oscillating saw. The collateral ligaments were carefully protected. The tibia was carefully exposed. The jig was applied, and the proximal tibia was resected according to preoperative plan. The knee was balanced in extension. Appropriate releases were taken where needed. The anterior cruciate ligament and meniscal remnants were removed. The posterior cruciate ligament was preserved. The patella was measured. Patellar resection was carried out with the oscillating saw. The lug holes drilled. The femur was sized and rotation assessed using a combination of gap balancing, posterior referencing, and the AP axis. The 4 in 1 cutting block was used to finish the femoral cuts after equal gaps were assured. The osteophytes were carefully removed from the back of the knee. The knee was copiously irrigated with antibiotic solution periodically throughout the procedure. The meniscal remnants were removed. The spacer block was used to confirm equal flexion and extension gaps. No further releases were needed. The tibia was sized and broached. The bony surfaces were prepared for cementing with pulsatile lavage. The real tibia was cemented into position. The femur was press-fit. The patella was press-fit. Excess cement was carefully removed. Patellar tracking was carefully assessed. Copious irrigation then performed. The wound was closed with #1 Vicryl suture, #1, 3-0, and 4-0 barbed suture, followed by Steri-Strips. A sterile bulky dressing was applied. Meticulous hemostasis was maintained throughout the procedure, and the bipolar cautery device was used. The pain relieving mixture was injected into the periarticular tissues during the procedure. There were no complications. The patient was extubated and brought to the recovery room in stable condition after the application of sterile dressing with Steve bandage. Physician financial sales assistant, Ashley Waterman PA-C, required for surgery; including patient positioning, draping, tissue retraction, maintaining instrument position, cement removal, wound closure, and dressing placement. Implants Synqera Triathlon knee system, low profile cemented tibia size 6, press-fit cruciate retaining femoral component size 6 ,and an 10 mm cruciate retaining polyethylene insert. 38mm asymmetric metal backed patella component. Estimated Blood Loss 50 Drains No Pathology None sent Complications No immediate complications Condition Stable Disposition PACU [facility] Billing Surgery - Charge Forward: Surgery Billing
--- NOTE | 2023-05-06 08:01 | WPDANESPNB ---
Anes - Peripheral Nerve Block Date/Time: 05/06/23 08:01 I have discussed with the patient/family/POA the placement of a peripheral nerve block for post-operative pain management, including associated risks, benefits, complications, and side effects. Alternative methods of post-operative analgesia were detailed. Questions were solicited and answers provided to the satisfaction of the patient/family/POA. Time-Out: A pre-procedural Time-Out was completed immediately before starting the procedure and confirmed: Patient Identification, Site, Procedure, Patient Position and the Availability of Requisite Equipment. Clinical Indications: Acute post-operative pain management requested by the operative surgeon. Nerve Block Insertion Note Anes-nerve block: adductor canal left Patient position: supine Skin prep: chlorhexidine Needle: 22 gauge, stimulating, insulated echogenic needle. Needle length: 80 mm Technique: ultrasound Injectate: bupivacaine 0.5% with epi 5 mcg/ml (30cc) and dexamethasone (mg) (8) Observations: tolerated well Complications: none Procedure start time:: 730 Procedure end time::
[2023-05-06] MEDS: GENTAMICIN BONE CEMENT REFOBACIN 1 EACH TOPICAL (08:06)
[2023-05-06] MEDS: fentaNYL CITRATE INJ (*CRX) 100 MCG/2 ML VIAL 25 MCG IV PUSH ×8 (09:24→10:06)
[2023-05-06] MEDS: diphenhydrAMINE HCl INJ 50 MG/ML VIAL 25 MG IV PUSH (09:48)
[2023-05-06] MEDS: oxyCODONE HCL (*CRX) 5 MG TAB IR 10 MG PO ×2 (11:15→17:07)
--- NOTE | 2023-05-06 11:36 | ADMGEN ---
This patient, Hugo Veras, was admitted to 2 Medical Room 260-. Patient/family oriented to hospital policies and general routines including ID bracelet, bed and alarms, visiting hours, pain management, procedures, bathroom and other care routines, personal items, smoking policy, room service/diet, and visiting hours. Information on how to activate the Rapid Response Team has been discussed. Patient/Family are encouraged to report perceived risks to care and to ask questions if they do not understand what they are told or what they should do.
[2023-05-06] MEDS: CYCLOBENZAPRINE HCL 10 MG TABLET PO (13:51)
[2023-05-06] MEDS: SENNA/DOCUSATE SODIUM TABLET 2 TAB PO (17:07)
[2023-05-06] MEDS: MELOXICAM 7.5 MG TABLET PO (17:07)
[2023-05-06] MEDS: ASPIRIN 81 MG ENTERIC TABLET PO (17:07)
[2023-05-06] MEDS: FAMOTIDINE 20 MG TABLET PO (21:07)
[2023-05-07 00:01] VITALS: BP 121/53; PULSE 55; RESP 17; TEMP 36.5; O2SAT 95
[2023-05-07] MEDS: ceFAZolin 2 GM/D5W 50 ML 2 GM/50 ML BAG IVPB ×2 (00:12→10:11)
[2023-05-07] MEDS: ACETAMINOPHEN 500 MG TABLET 1000 MG PO ×3 (00:12→12:48)
[2023-05-07 04:06] VITALS: BP 107/52; PULSE 67; RESP 18; TEMP 36.8; O2SAT 96
[2023-05-07 05:31] LABS: Basophils Percent Auto 0.1 % (0.2-1.2); Hematocrit 36.1 % (42.0-52.0); Hemoglobin 11.8 g/dL (14.0-18.0); Immature Granulocyte Absolute 0.05 K/mm3 (0.00-0.031); Immature Granulocyte Percent A 0.4 % (0-0.5); Lymphocytes Absolute Auto 1.29 K/mm3 (0.9-3.2); Lymphocytes Percent Auto 9.2 % (18.3-44.2); Mean Corpuscular HGB Conc 32.7 g/dl (32-36); Mean Corpuscular Hemoglobin 30.7 pg (26-34); Mean Platelet Volume 11.2 fl (7.4-10.4); Monocytes Absolute Auto 1.2 K/mm3 (0.1-0.6); Monocytes Percent Auto 8.3 % (2.6-8.5); Neutrophils Absolute Auto 11.5 K/mm3 (1.3-6.7); Platelet Count Result 189 k/mm3 (150-375); Red Blood Count 3.84 M/mm3 (4.6-6.20); Red Cell Distribution Width 12.9 % (11.5-14.5)
[2023-05-07 05:47] LABS: Anion Gap 4 mmol/L (8-16); Blood Urea Nitrogen 23 mg/dL (9-20); Calcium 8.6 mg/dL (8.4-10.2); Carbon Dioxide 27 mmol/L (22-30); Chloride 104 mmol/L (98-107); Estimated CRCL calculation 94 ml/min; Estimated Glomerular Filt Rate > 60; Glucose 165 mg/dL (65-110); Potassium 4.1 mmol/L (3.4-5.0); Sodium 135 mmol/L (137-145)
--- NOTE | 2023-05-07 08:00 | P.PNAN_ITS ---
Anes - Prog Note Post-Op Date/Time: 05/07/23 08:00 Cardiovascular status: normal Respiratory status: normal Airway patency: baseline Mental status: baseline Post-Op hydration status: normal Vital Signs: Last Vital Signs Temp 36.8 C 05/07/23 04:06 Pulse 67 05/07/23 04:06 Resp 18 05/07/23 04:06 BP 107/52 L 05/07/23 04:06 Pulse Ox 96 05/07/23 04:06 O2 Del Method Room Air 05/06/23 20:00 O2 Flow Rate 2 05/06/23 11:03 Pain Score (VAS): 0 I/O: Intake & Output 05/06/23 05/07/23 05/07/23 23:59 07:59 15:59 Intake Total 1060 400 Balance 1060 400 Laboratory Tests 05/07/23 05:05 05/07/23 05:05 05/06/23 05/07/23 07:46 05:05 WBC 14.0 H RBC 3.84 L Hgb 11.8 L D Hct 36.1 L MCV 94.0 MCH 30.7 MCHC 32.7 RDW 12.9 Plt Count 189 MPV 11.2 H Immature Gran % (Auto) 0.4 Neut % (Auto) 82.0 H Lymph % (Auto) 9.2 L [place] % (Auto) 8.3 Eos % (Auto) 0.0 Baso % (Auto) 0.1 L Lymph # (Auto) 1.29 [place] # (Auto) 1.2 H Eos # (Auto) 0.0 Baso # (Auto) 0.0 Abs Immat Gran (auto) 0.05 H Absolute Neuts (auto) 11.5 H Absolute Nucleated RBC 0.0 Nucleated RBC % 0.0 Sodium 135 L Potassium 4.1 Chloride 104 Carbon Dioxide 27 Anion Gap 4 L BUN 23 H Creatinine 0.90 Estim Creat Clear Calc 94 Estimated GFR > 60 Glucose 165 H Calcium 8.6 Blood Type A Positive Antibody Screen Negative Post-procedural complaints: none Patient Feedback: Patient satisfied with anesthetic care.
--- NOTE | 2023-05-07 08:12 | PM.DS ---
DS: Admitting Diagnosis Discharge Date 05/07/23 Admitting Diagnosis OA knee Left DS: Discharge Diagnosis Discharge Diagnosis Plan Postop day 1: Left total knee arthroplasty. Patient tolerated procedure well. No complications. Pain manageable with pain medication. No numbness or tingling. We had a lengthy discussion regarding postoperative wound care, limitations, expectations, and exercises. Patient shows good understanding. He has had initial physical therapy and is tolerating it well. DVT prophylaxis: 81 mg baby aspirin b.i.d. for 14 days. Pain medication: Percocet. Patient has followup appointment with Dr. Torres in 3 weeks. DS: Summary Hospital Course Reason for hospitalization: Total knee arthroplasty Hospital Course: Patient tolerated procedure well. Has had initial PT/OT. Status at Discharge Functional status at discharge: uses cane/walker Overall status at discharge: patient is progressing back to baseline Time Spent with Patient Time attestation: Total time spent providing and/or coordinating discharge services: Exam Narrative: 68-year-old overweight male. Resting comfortably in bed. Alert and oriented x3. No acute distress. Wearing compression socks bilaterally. Dressing dry and intact without drainage. Mild swelling. No ecchymosis. Mild erythema. No hematoma. Range of motion limited due to pain. Calf nontender. Neurologic status intact. No varicosities. Distal pulses palpable. Good quad function. DS: Data Data Completed and Pending Labs on day of discharge: Labs from last 24 hours 05/07/23 05/06/23 05:05 07:46 WBC 14.0 H RBC 3.84 L Hgb 11.8 L D Hct 36.1 L MCV 94.0 MCH 30.7 MCHC 32.7 RDW 12.9 Plt Count 189 MPV 11.2 H Immature Gran % (Auto) 0.4 Neut % (Auto) 82.0 H Lymph % (Auto) 9.[address] [place] % (Auto) 8.3 Eos % (Auto) 0.0 Baso % (Auto) 0.1 L Lymph # (Auto) 1.29 [place] # (Auto) 1.2 H Eos # (Auto) 0.0 Baso # (Auto) 0.0 Abs Immat Gran (auto) 0.05 H Absolute Neuts (auto) 11.5 H Absolute Nucleated RBC 0.0 Nucleated RBC % 0.0 Sodium 135 L Potassium 4.1 Chloride 104 Carbon Dioxide 27 Anion Gap 4 L BUN 23 H Creatinine 0.90 Estim Creat Clear Calc 94 Estimated GFR > 60 Glucose 165 H Calcium 8.6 Blood Type A Positive Antibody Screen Negative Discharge Plan Discharge Patient Disposition: Home, Self-Care Discharge Instructions: See green instruction sheets Stand Alone Forms: General Discharge Instructions Follow-up/Referrals: Ashley Waterman PA [Physician Production Mechanic] - Discharge Medications: New prednisone 5 mg tablet 5 mg PO DAILY 21 Days Qty: 21 0RF aspirin 81 mg tablet,delayed release (DR/EC) 81 mg PO BID 14 Days Qty: 28 0RF oxycodone-acetaminophen 5-325 mg tablet 1 - 2 tablet PO Q4-6H MDD 6 PRN (Reason: pain) Qty: 30 0RF
[2023-05-07 08:28] VITALS: O2SAT 95
--- NOTE | 2023-05-07 08:45 | PCPTNOTE ---
Attempted to see patient for PT, however patient was eating breakfast.
[2023-05-07 09:51] VITALS: BP 107/56; PULSE 63; RESP 16; TEMP 36.2; O2SAT 98
[2023-05-07] MEDS: oxyCODONE HCL (*CRX) 5 MG TAB IR 10 MG PO (10:10)
[2023-05-07] MEDS: MELOXICAM 7.5 MG TABLET PO (10:11)
[2023-05-07] MEDS: FAMOTIDINE 20 MG TABLET PO (10:11)
[2023-05-07] MEDS: ASPIRIN 81 MG ENTERIC TABLET PO (10:11)
[2023-05-07] MEDS: SENNA/DOCUSATE SODIUM TABLET 2 TAB PO (10:11)
[2023-05-07] MEDS: predniSONE 5 MG TABLET PO (10:11)
[2023-05-07] MEDS: polyethylene glycoL 3350 17 GM POWD.PACK PO (10:15)
[2023-05-07] MEDS: CYCLOBENZAPRINE HCL 10 MG TABLET PO (12:49)
== END 2023-05-07 13:10 | disposition home or self-care (01) ==
LOC: ANHSURGERY 07:21 → ANH2MED 10:37
PROVIDERS: Physician Assistant Surgical; Visit Provider Orthopaedic Surgery
PROC: (CPT 27447; principal; 2023-05-06 07:30)
DX: M17.12 Unilateral primary osteoarthritis, left knee (principal); G89.18 Other acute postprocedural pain
CPT/HCPCS: 27447; 64447; 36415; 73560; 80048; 80307; 82040; 82565; 82947; 85025; 86850; 86900; 86901; 87081; 93005; 97110; 97116; 97161; 97165; 97530; 97535; A9270; C1713; C1776; J0171; J0690; J1100; J1170; J1200; J1885; J2250; J2270; J2405; J2704; J2795; J3010; J7120; J7512

== ENCOUNTER 2023-05-30 10:18 | Outpatient (CLI) | payer MEDICARE, SELFPAY ==
--- NOTE | ~2023-05-30 | XR_ITS ---
Left Knee Technique: AP, lateral, and sunrise views were obtained. Clinical History: Arthroplasty Findings: No fracture or dislocation is seen. Left knee arthroplasty in place, without evidence of gonzalez rdware complication. There is mild soft tissue thickening in the prepatellar region/patellar tendon r egion. No joint effusion is seen. Impression: Left knee arthroplasty in place, without evidence of hardware complication. Soft tissue thickening in the prepatellar region, possibly postoperative in nature. Reviewed, dictated and finalized at location M. READER Impression: Left knee arthroplasty in place, without evidence of hardware complication. Soft tissue thickening in the prepatellar region, possibly postoperative in juliano ure.
== END 2023-05-30 10:19 | disposition home or self-care (01) ==
LOC: ANHIMG 10:21
PROVIDERS: Visit Provider Orthopaedic Surgery
DX: Z96.652 Presence of left artificial knee joint (principal); M79.89 Other specified soft tissue disorders
CPT/HCPCS: 73562